=== PATIENT | male | born 1955 | race Native Hawaiian/Other Pacific Islander ===

== ENCOUNTER 2018-10-22 09:11 | Outpatient (CLI) | payer BC ==
[2018-10-26 20:53] LABS: Vitamin D, 25-OH, D2 <4 ng/mL
== END 2018-10-22 09:12 | disposition home or self-care (01) ==
LOC: LAB 09:11
PROVIDERS: ATTEND Internal Medicine
DX: E55.9 Vitamin D deficiency, unspecified (principal); R73.9 Hyperglycemia, unspecified
CPT/HCPCS: 36415; 82306; 83036